=== PATIENT | female | born 1955 | race Two or more races ===

== ENCOUNTER 2021-04-23 07:13 | Emergency (ER) | payer MEDICARE, OTHER ==
[~2021-04-23] VITALS: Ht 157.5 cm; Wt 84.0 kg
[2021-04-23 07:46] VITALS: BP 149/94
== END 2021-04-23 09:12 | disposition home or self-care (01) ==
LOC: ER 07:23
DX: S90.31XA Contusion of right foot, initial encounter (principal); I10 Essential (primary) hypertension; Z98.890 Other specified postprocedural states; W18.09XA Striking against other object with subsequent fall, initial encounter; Y93.89 Activity, other specified; Y92.89 Other specified places as the place of occurrence of the external cause; Y99.8 Other external cause status
CPT/HCPCS: 73630-TC

== ENCOUNTER 2021-08-28 07:03 | Inpatient (IN) | payer MEDICARE, OTHER ==
[~2021-08-28] VITALS: Ht 157.5 cm; Wt 90.7 kg
--- NOTE | 2021-08-28 07:03 | NUR ---
PT BIB SELF C/O SHARP R SIDED BREAST PAIN AND ON AND OFF DIZZINESS X 2 WEEKS. PT IS AAOX4, NOT IN RESPIRATORY DISTRESS, HOOKED TO SOFTWARE SALES EXECUTIVE, KEPT RESTED AND COMFORTABLE. WILL CONTINUE TO MONITOR.
--- NOTE | 2021-08-28 07:42 | NUR ---
AT BEDSIDE FOR EVAL.
[2021-08-28] MEDS ORDERED: ASPIRIN 325 MG TABLET ONE (07:57)
[2021-08-28] MEDS ORDERED: ASPIRIN 325 MG TABLET PO ONE (08:00)
--- NOTE | 2021-08-28 08:00 | NUR ---
ER PHLEB AT BEDSIDE FOR BLOOD DRAW.
--- NOTE | 2021-08-28 08:07 | NUR ---
SENIOR SAS PROGRAMMER AT BEDSIDE FOR XRAY.
[2021-08-28 08:15] LABS: BASOPHILS # (AUTO) 0.1 K/uL (0.0-0.2); BASOPHILS % (AUTO) 1.1 % (0.0-2.0); EOSINOPHILS % (AUTO) 3.5 % (0.0-6.0); HEMATOCRIT 36 % (33-45); HEMOGLOBIN 11.8 g/dL (11.5-14.8); LYMPHOCYTES # (AUTO) 1.8 K/uL (0.8-4.8); LYMPHOCYTES % (AUTO) 37.9 % (20.0-44.0); MEAN CORPUSCULAR HGB CONC 33 g/dl (31.0-36.0); MEAN CORPUSCULAR VOLUME 100 fL (82-100); MONOCYTES # (AUTO) 0.7 K/uL (0.1-1.30); MONOCYTES % (AUTO) 14.2 % (2.0-12.0); NEUTROPHILS % (AUTO) 43.3 % (43.0-81.0); PLATELET COUNT (AUTO) 359 K/uL (150-450); RED BLOOD CELL COUNT(AUTO) 3.62 MIL/uL (4.0-5.2); WHITE BLOOD COUNT (AUTO) 4.6 K/uL (4.3-11.0)
[2021-08-28 08:32] LABS: CALCIUM, SERUM 8.5 mg/dL (8.5-10.1); CARBON DIOXIDE 29 mmol/L (21-32); CHLORIDE 104 mmol/L (98-107); CREATININE 0.7 mg/dL (0.6-1.3); GLUCOSE 102 mg/dL (74-106); POTASSIUM 4.2 mmol/L (3.5-5.1); SODIUM SERUM 138 mmol/L (136-145); UREA NITROGEN, BLOOD 20 mg/dL (7-18)
[2021-08-28] MEDS ORDERED: HYDROCODONE/APAP 5/325MG TABLET ONE (08:34)
[2021-08-28] MEDS ORDERED: HYDROCODONE/APAP 5/325MG TABLET PO ONE (09:00)
--- NOTE | 2021-08-28 09:30 | NUR ---
MOVE SHEET SUBMITTED AND CALLED FOR TELE BED.
--- NOTE | 2021-08-28 09:55 | NUR ---
IV LINE ESTABLISHED BLOOD DRAWN AND SENT TO LAB.
--- NOTE | 2021-08-28 11:44 | NUR ---
[facility] CALLED SPOOLING OPERATOR PAGED.
[2021-08-28] MEDS ORDERED: TRAM50TA2 PO (11:48)
[2021-08-28] MEDS ORDERED: CYCL10TA9 PO (11:48)
[2021-08-28] MEDS ORDERED: OLME1TAB92 PO (11:48)
[2021-08-28] MEDS ORDERED: CALC-1180 PO (11:48)
[2021-08-28] MEDS ORDERED: FERR325T23 PO (11:48)
--- NOTE | 2021-08-28 12:09 | NUR ---
GOT BED 309-1
--- NOTE | 2021-08-28 12:40 | NUR ---
REPORT GIVEN TO RADHA ENCINAS FOR DELMI.
[2021-08-28 13:05] VITALS: BP 143/79
--- NOTE | 2021-08-28 14:21 | NUR ---
BENZENE WORKER ADMITTING NOTES ADMITTED PATIENT TO UNIT AT 1305 VIA GURNEY, ACCOMPANIED BY NURSE SOLANGE MARTE. PATIENT FULLY A/O X 4, ABLE TO MAKE NEEDS KNOWN. NO COMPLAINTS OF PAIN OR DISTRESS AT THIS TIME. PATIENT ORIENTED TO STAFF AND UNIT. PATIENT ON ROOM AIR TOLERATING WELL. VITAL SIGNS RECORDED AND STABLE. PATIENT WITH 20 G SALINE LOCK ON R HAND PATENT AND FLUSHING WELL. SKIN INTACT. PATIENT PLACED ON EXTERNAL TEXTILE PIN WORKER WITH READING NSR 77 AT THIS TIME. NO COMPLAINTS OF CARDIAC DISTRESS VOICED. SAFETY MEASURES IN PLACE: BED IN LOWEST LOCKED POSITION, SIDE RAILS UP X 2, CALL LIGHT AND TRAY TABLE PLACED WITHIN EASY REACH OF PATIENT. MD VÁZQUEZ MADE AWARE OF PATIENT ADMISSION TO UNIT. AWAITING ADMITTING ORDERS. WILL CONTINUE TO MONITOR.
[2021-08-28] MEDS ORDERED: Z GUARD REMEDY 4 OZ OINT TP PRN (15:00)
[2021-08-28] MEDS ORDERED: MAG HYDROX/AL HYDROX/SIMETH 30 ML UDC PO PRN (15:00)
[2021-08-28] MEDS ORDERED: ONDANSETRON HCL/PF 4 MG/2 ML VIAL IVP PRN (15:00)
[2021-08-28] MEDS ORDERED: MAGNESIUM HYDROXIDE 30 ML UDC PO PRN (15:00)
[2021-08-28] MEDS: TRAMADOL HCL 50 MG TABLET PO PRN (15:49)
--- NOTE | 2021-08-28 15:49 | NUR ---
BRIDGE SAW OPERATOR NOTES PATIENT COMPLAINT OF 3/10 RIGHT CHEST PAIN AND REQUESTING PAIN MEDICATION. PRN TRAMADOL 50 MG ORAL TAB ADMINISTERED ORDERED. WILL CONTINUE TO MONITOR FOR S/S OF PAIN.
[2021-08-28 16:00] VITALS: BP 151/77
--- NOTE | 2021-08-28 18:58 | NUR ---
AUTOMOBILE INSURANCE CLAIM EXAMINER CLOSING NOTES PATIENT IN BED A/O X 4, ABLE TO MAKE NEEDS KNOWN. PATIENT ON ROOM AIR TOLERATING WELL. PATIENT WITH 20 G SALINE LOCK ON R HAND PATENT AND FLUSHING WELL. EXTERNAL PROVIDER NETWORK MANAGER WITH SINUS TACH 102 AT THIS TIME. NO COMPLAINTS OF CARDIAC DISTRESS VOICED. SAFETY MEASURES IN PLACE: BED IN LOWEST LOCKED POSITION, SIDE RAILS UP X 2, CALL LIGHT AND TRAY TABLE PLACED WITHIN EASY REACH OF PATIENT. ALL CARE MET. WILL ENDORSE TO COLD ROLL INSPECTOR FOR DELMI.
--- NOTE | 2021-08-28 19:15 | NUR ---
SUBGRADE ROLLER OPERATOR OPENING NOTES: RECEIVED PATIENT IN BED, AWAKE, A/O X4. NO S/S OF DISTRESS NOTED. NO COMPLAIN OF PAIN. CALL LIGHT WITHIN REACH. BED IN LOWEST AND LOCKED POSITION. ON TELE MONITOR WITH SR 80.
[2021-08-28 19:59] VITALS: BP 136/73
[2021-08-29] MEDS: ACETAMINOPHEN 325 MG TABLET PO PRN (06:02)
[2021-08-29 06:51] LABS: BASOPHILS % (AUTO) 0.6 % (0.0-2.0); EOSINOPHILS % (AUTO) 1.8 % (0.0-6.0); HEMATOCRIT 36 % (33-45); HEMOGLOBIN 11.8 g/dL (11.5-14.8); LYMPHOCYTES % (AUTO) 23.1 % (20.0-44.0); MEAN CORPUSCULAR HGB CONC 33 g/dl (31.0-36.0); MEAN CORPUSCULAR VOLUME 99 fL (82-100); MONOCYTES # (AUTO) 0.5 K/uL (0.1-1.30); MONOCYTES % (AUTO) 10.5 % (2.0-12.0); NEUTROPHILS # (AUTO) 2.8 K/uL (1.8-8.9); PLATELET COUNT (AUTO) 352 K/uL (150-450); RED BLOOD CELL COUNT(AUTO) 3.63 MIL/uL (4.0-5.2); WHITE BLOOD COUNT (AUTO) 4.3 K/uL (4.3-11.0)
[2021-08-29 07:08] LABS: CREATININE 0.4 mg/dL (0.6-1.3); MAGNESIUM 1.8 mg/dL (1.8-2.4); PHOSPHORUS 3.6 mg/dL (2.5-4.9); POTASSIUM 3.9 mmol/L (3.5-5.1)
--- NOTE | 2021-08-29 07:40 | NUR ---
TELE/RN OPENING NOTE RECEIVED PATIENT IN BED, A/O X4, RESPONDS TO ALL STIMULI. IN NO ACUTE DISTRESS OBSERVED. RESPIRATORY EVEN AND UNLABORED ON ROOM AIR, NO SOB. PATIENT IS AMBULATORY. PATIENT IS COMPLAINING OF HEADACHE, WILL CHECK PRN MEDS. SKIN IS WARM TO TOUCH, CLEAN/DRY, IV SITE ON RIGHT HAND #20G IS INTACT AND PATENT ON SALINE LOCK. ELEVATED HOB TO ENSURE AIRWAY AND ASPIRATION PRECAUTION, ALSO LOWER POSITION OF THE BED FOR SAFETY. CALL LIGHT WITHIN REACH, WILL CONTINUE TO MONITOR.
[2021-08-29 08:28] VITALS: BP 137/78
[2021-08-29] MEDS: CALCIUM CARB 600MG /VIT D 1 EACH TABLET PO SCH (08:52)
[2021-08-29] MEDS: FERROUS SULFATE (325 MG) 325 MG/TAB TABLET PO SCH (08:52)
[2021-08-29] MEDS: HYDROCHLOROTHIAZIDE PO SCH (09:25)
[2021-08-29] MEDS: OLMESARTAN PO SCH (09:25)
[2021-08-29] MEDS: TRAMADOL HCL 50 MG TABLET PO PRN ×2 (10:38→16:44)
[2021-08-29] MEDS: METOPROLOL TARTRATE 25 MG TABLET PO SCH ×2 (11:47→20:57)
[2021-08-29 16:18] VITALS: BP 124/72
--- NOTE | 2021-08-29 18:30 | NUR ---
PATIENT WAS PICKED UP FOR THE CT CHEST WITH CONTRAST PROCEDURE.
[2021-08-29] MEDS ORDERED: IV NS 0.9% 250 ML IV ONE (18:36)
[2021-08-29] MEDS ORDERED: IOHEXOL-300 100 ML VIAL IV ONE (18:36)
[2021-08-29] MEDS ORDERED: CT SWABBABLE VALVE TRANS SET 1 EA INFUS.SET MC ONE (18:36)
--- NOTE | 2021-08-29 18:54 | NUR ---
PATIENT JUST CAME BACK FROM CT CHEST WITH CONTRAST.
--- NOTE | 2021-08-29 18:59 | NUR ---
TELE/RN CLOSING NOTE PATIENT IN BED, A/O X4, RESPONDS TO ALL STIMULI. IN NO ACUTE DISTRESS OBSERVED. RESPIRATORY EVEN AND UNLABORED ON ROOM AIR, NO SOB. PATIENT IS AMBULATORY. ON TELEMONITOR WITH SINUS RHYTHM AT 81 READING. SKIN IS WARM TO TOUCH, CLEAN/DRY, IV SITE ON RIGHT HAND #20G IS INTACT AND PATENT ON SALINE LOCK. ELEVATED HOB TO ENSURE AIRWAY AND ASPIRATION PRECAUTION, ALSO LOWER POSITION OF THE BED FOR SAFETY. ALL NEEDS MET. KEPT PATIENT COMFORTABLE. CALL LIGHT WITHIN REACH, WILL ENDORSE TO THE NEXT SHIFT FOR DELMI.
--- NOTE | 2021-08-29 19:15 | NUR ---
ELECTRICAL ENGINEERING INTERN OPENING NOTES: RECEIVED PATIENT RESTING IN BED, AWAKE, A/O X4. NO S/S OF DISTRESS NOTED. NO COMPLAIN OF PAIN. CALL LIGHT WITHIN REACH. BED IN LOWEST AND LOCKED POSITION. ON TELE MONITOR WITH SINUS 79.
[2021-08-29 20:00] VITALS: BP 113/62
[2021-08-29] MEDS: CYCLOBENZAPRINE 10 MG TABLET PO PRN (21:05)
[2021-08-30] VITALS: BP 92/60
[2021-08-30 04:00] VITALS: BP 96/59
--- NOTE | 2021-08-30 06:02 | NUR ---
CHA MOTA INFORMED BP 96/59 HR 61.
--- NOTE | 2021-08-30 07:30 | NUR ---
MS RN OPENING NOTES RECEIVED PATIENT IN BED; ALERT, ORIENTED AND RESPONSIVE X 4; NOT IN ANY FORM OF DISTRESS; ON ROOM AIR, TOLERATING WELL. BREATHING IS EVEN AND UNLABORED. NO SHORTNESS OF BREATH NOTED. PATIENT COMPLAINED OF HEADACHE, WILL CHECK PRN MED. IV ACCESS ON RIGHT HAND WITH G20, PATENT AND INTACT ON SALINE LOCKED. SAFETY MEASURES IN PLACED. CALL LIGHT WITHIN REACH. SIDE RAILS UP X 2. BED IN LOWEST LOCKED POSITION
[2021-08-30 08:00] VITALS: BP 109/59
[2021-08-30] MEDS: FERROUS SULFATE (325 MG) 325 MG/TAB TABLET PO SCH (08:21)
[2021-08-30] MEDS: CALCIUM CARB 600MG /VIT D 1 EACH TABLET PO SCH (08:22)
[2021-08-30] MEDS: ACETAMINOPHEN 325 MG TABLET PO PRN (08:50)
[2021-08-30] MEDS: OLMESARTAN PO SCH (09:00)
[2021-08-30] MEDS: METOPROLOL TARTRATE 25 MG TABLET PO SCH ×2 (09:00→21:05)
[2021-08-30] MEDS: HYDROCHLOROTHIAZIDE PO SCH (09:00)
--- NOTE | 2021-08-30 09:30 | NUR ---
DOG WALKER NOTES DUE MEDS GIVEN ORALLY ORDERED, TOLERATED WELL
[2021-08-30 16:04] VITALS: BP 90/66
[2021-08-30] MEDS: TRAMADOL HCL 50 MG TABLET PO PRN ×2 (16:35→19:32)
--- NOTE | 2021-08-30 19:01 | NUR ---
CLEAN RICE BROKER CLOSING NOTE PATIENT IS RESTING IN BED. NEEDS ATTENDED TO. ENDORSED TO NURSE VILMA
--- NOTE | 2021-08-30 19:42 | NUR ---
GLASS HANDLER OPENING NOTES RECEIVED PATIENT IN BED. A/OX4. NO S/S OF APPARENT DISTRESS. C/O 01/04 HEADACHE-- GIVEN PAIN MEDICATION. TELE MONITOR READING SR 75. NO FLUIDS RUNNING AT THIIS TIME. SAFETY IN PLACE. WILL CONTINUE WITH PATIENT CARE PLAN.
[2021-08-30 20:00] VITALS: BP 111/63
[2021-08-30] MEDS: CYCLOBENZAPRINE 10 MG TABLET PO PRN (20:35)
[2021-08-30 23:53] VITALS: BP 106/67
[2021-08-31] VITALS (8 sets, daily range): BP systolic 96–134; BP diastolic 43–69
--- NOTE | 2021-08-31 06:45 | NUR ---
ASSEMBLER RUBBER FOOTWEAR CLOSING NOTE PATIENT IN BED WITH EYES CLOSE, A/OX4. NO S/S OF APPARENT DISTRESS ON ROOM AIR. PAIN MANAGED WITH MEDICATIONS. TELE MONITOR READING NSR 83 BPM THROUGHOUT SHIFT. NO FLUIDS RUNNING AT THIS TIME. ALL NEEDS ATTENDED. ALL SCHEDULED MEDICATION ADMINISTERED. NO SIGNIFICANT CHANGE SINCE LAST ENDORSEMENT. SAFETY KEPT IN PLACE THE WHOLE SHIFT. WILL ENDORSE TO MORNING SHIFT RN FOR CONTINUITY OF CARE.
--- NOTE | 2021-08-31 07:34 | NUR ---
APPLICATION ADMINISTRATOR OPENING NOTES RECEIVED PATIENT IN BED, AWAKE. A/OX4. NO S/S OF APPARENT DISTRESS, NO COMPLAINTS OF PAIN TA THIS TIME. TELE MONITOR READING SR 77. IV ACCESS ON RIGHT HAND SALINE LOCKED, PATENT AND FLUSHES WELL. SAFETY PRECAUTIONS IN PLACE: BED ON LOWEST LOCKED POSITION, SIDE RIALS UP X 2, CALL LIGHT WITHIN EASY REACH. SAFETY IN PLACE. WILL CONTINUE TO MONITOR ACCORDINGLY.
[2021-08-31] MEDS: FERROUS SULFATE (325 MG) 325 MG/TAB TABLET PO SCH (08:21)
[2021-08-31] MEDS: CALCIUM CARB 600MG /VIT D 1 EACH TABLET PO SCH (08:21)
[2021-08-31] MEDS: OLMESARTAN PO SCH (08:28)
[2021-08-31] MEDS: HYDROCHLOROTHIAZIDE PO SCH (08:28)
[2021-08-31] MEDS: METOPROLOL TARTRATE 25 MG TABLET PO SCH ×2 (08:28→21:00)
--- NOTE | 2021-08-31 09:48 | NUR ---
RN NOTES AWAITING SCHEDULE/INSTRUCTIONS FOR STA TODAY. FOLLOWED UP WITH AUTOMOTIVE TIRE TECHNICIAN DEPARTMENT AND NURSING FORENSIC DNA ANALYST.
--- NOTE | 2021-08-31 11:24 | NUR ---
RN NOTES RECEIVED A PHONE CALL FROM [facility] [facility]. PER [facility] NO AVAILABLE TECH TO DO CTA TODAY. PATIENT NAD DR. VÁZQUEZ MADE AWARE.
[2021-08-31] MEDS: TRAMADOL HCL 50 MG TABLET PO PRN (17:29)
--- NOTE | 2021-08-31 18:52 | NUR ---
RECREATION TECHNICIAN CLOSING NOTES PATIENT IN BED, AWAKE. A/OX4. NO S/S OF APPARENT DISTRESS, NO COMPLAINTS OF PAIN TA THIS TIME. TELE MONITOR READING SR 77. IV ACCESS ON RIGHT HAND SALINE LOCKED, PATENT AND FLUSHES WELL. SAFETY PRECAUTIONS IN PLACE: BED ON LOWEST LOCKED POSITION, SIDE RIALS UP X 2, CALL LIGHT WITHIN EASY REACH. SAFETY IN PLACE. PAIN MANAGED BY PAIN MEDICATION ORDERED. ALL NEEDS ATTENDED AND MET. DUE MEDS GIVEN ORDERED. WILL ENDORSE TO ONCOMING SHIFT FOR DELMI.
--- NOTE | 2021-08-31 19:34 | NUR ---
SUPPLY CHAIN DIRECTOR OPENING NOTES RECEIVED PATIENT IN BED WATCHING TV. A/OX4. NO S/S OF APPARENT DISTRESS. DENIES PAIN AT THIS TIME. PATIENT MADE KNOWN ABOUT PROCEDURE FOR TOMORROW AND NPO POST MIDNIGHT, PATIENT ACKNOWLEDGED. TELE MONITOR READING SR 85. NO FLUIDS RUNNING AT THIS TIME. SAFETY IN PLACE. WILL CONTINUE WITH PATIENT CARE PLAN.
[2021-08-31] MEDS: CYCLOBENZAPRINE 10 MG TABLET PO PRN (20:27)
[2021-09-01] VITALS: BP 109/62
[2021-09-01 05:00] VITALS: BP 92/46
--- NOTE | 2021-09-01 06:48 | NUR ---
CRAB BUTCHER CLOSING NOTE PATIENT IN BED WITH EYES CLOSE, A/OX4. NO S/S OF APPARENT DISTRESS ON ROOM AIR. DENIES PAIN. TELE MONITOR READING NSR 70 BPM. NO FLUIDS RUNNING AT THIS TIME. ALL NEEDS ATTENDED. BP MEDS HELD DUE TO LOW BP. NO SIGNIFICANT CHANGE SINCE LAST ENDORSEMENT. SAFETY KEPT IN PLACE THE WHOLE SHIFT. PATIENT KEPT NPO SINCE MIDNIGHT. CONSENT IN CHART FOR CTA. WILL ENDORSE TO MORNING SHIFT RN FOR CONTINUITY OF CARE.
--- NOTE | 2021-09-01 07:05 | NUR ---
BROKE MAN OPENING NOTES RECEIVED PATIENT IN BED, PATIENT IS AWAKE. A/OX4. NO S/S OF APPARENT DISTRESS, NO COMPLAINTS OF PAIN AT THIS TIME. TELE MONITOR READING SR 77. IV ACCESS ON RIGHT HAND #20 SALINE LOCKED, PATENT AND FLUSHES WELL. SAFETY PRECAUTIONS IN PLACE: BED ON LOWEST LOCKED POSITION, SIDE RIALS UP X 2, CALL LIGHT WITHIN EASY REACH. SAFETY IN PLACE. WILL CONTINUE TO MONITOR
[2021-09-01] MEDS: CALCIUM CARB 600MG /VIT D 1 EACH TABLET PO SCH (08:04)
[2021-09-01] MEDS: FERROUS SULFATE (325 MG) 325 MG/TAB TABLET PO SCH (08:04)
[2021-09-01] MEDS: METOPROLOL TARTRATE 25 MG TABLET PO SCH (08:05)
[2021-09-01] MEDS: OLMESARTAN PO SCH (08:06)
[2021-09-01] MEDS: HYDROCHLOROTHIAZIDE PO SCH (08:06)
[2021-09-01 08:20] VITALS: BP 98/58
[2021-09-01] MEDS ORDERED: NITROGLYCERIN 0.4 MG/TAB BOTTLE SL ONE (09:00)
[2021-09-01] MEDS ORDERED: METOPROLOL TARTRATE INJ 5 MG/5 ML AMPUL IVP PRN (09:00)
[2021-09-01] MEDS ORDERED: IV NS 0.9% 250 ML IV ONE (09:03)
[2021-09-01] MEDS ORDERED: IOHEXOL-350 100 ML VIAL IV ONE (09:03)
[2021-09-01] MEDS ORDERED: METOPROLOL TARTRATE INJ 5 MG/5 ML AMPUL ONE (09:09)
[2021-09-01] MEDS ORDERED: NITROGLYCERIN 0.4 MG/TAB BOTTLE ONE (09:19)
[2021-09-01] MEDS: ACETAMINOPHEN 325 MG TABLET PO PRN (09:44)
--- NOTE | 2021-09-01 13:00 | NUR ---
PSYCHIATRIC CLINICIAN NOTE RECEIVED ORDER FOR DISCHARGE. PATIENT IS AO X4. PATIENT IS BREATHING EVENLY AND NONLABORED ON ROOM AIR. NO SIGNS OF PAIN OR DISTRESS. PATIENT WAS GIVEN DISCHARGE INSTRUCTIONS BOTH VERBALLY AND IN WRITTEN FORM. PATIENT VERBALIZED UNDERSTANDING. PATIENTS BELONGINGS AND MEDICATIONS ACCOUNTED FOR AND BELONGINGS FORM SIGNED. PATIENTS IV ACCESS WAS REMOVED PRESSURE DRESSING APPLIED NO BLEEDING NOTED. ID BAND REMOVED. PATIENT LEFT THE HOSPITAL IN STABLE CONDITION VIA PRIVATE CAR.
[2021-09-01 13:02] VITALS: BP 99/60
== END 2021-09-01 12:30 | disposition home or self-care (01) | DRG 206 ==
LOC: ER 07:06 → TELE 12:23
PROVIDERS: ADMIT Internal Medicine; ATTEND Internal Medicine
DX: M94.0 Chondrocostal junction syndrome [Tietze] (principal); I10 Essential (primary) hypertension; Z82.49 Family history of ischemic heart disease and other diseases of the circulatory system; G89.29 Other chronic pain; E66.01 Morbid (severe) obesity due to excess calories; R91.1 Solitary pulmonary nodule; I70.0 Atherosclerosis of aorta; I27.20 Pulmonary hypertension, unspecified; Z87.01 Personal history of pneumonia (recurrent); G47.33 Obstructive sleep apnea (adult) (pediatric); Z87.891 Personal history of nicotine dependence; M54.2 Cervicalgia; M54.9 Dorsalgia, unspecified; Z20.822 Contact with and (suspected) exposure to COVID-19; R92.8 Other abnormal and inconclusive findings on diagnostic imaging of breast; Z88.6 Allergy status to analgesic agent
CPT/HCPCS: 36415; 71046; 71260-TC; 75574; 80048-TC; 83735-TC; 84100-TC; 84484-TC; 85025-TC; 85378-TC; 86480; 87081-TC; 93307-TC; C9803; G0378; J3490; J7050; Q9967

== ENCOUNTER 2022-08-10 13:17 | Emergency (ER) | payer MEDICARE, OTHER ==
[~2022-08-10] VITALS: Ht 157.5 cm; Wt 84.4 kg
[~2022-08-10 13:17] MED LIST: CALC-1180 PO; CYCL10TA9 PO; FERR325T23 PO; OLME1TAB92 PO; TRAM50TA2 PO
--- NOTE | 2022-08-10 13:36 | NUR ---
C/O LEFT ARM PAIN X 2 WEEKS S/P "LIFTING SOMETHING HEAVY"
--- NOTE | 2022-08-10 13:42 | NUR ---
technical service specialist at bedside.
[2022-08-10 14:41] VITALS: BP 156/72
== END 2022-08-10 14:42 | disposition home or self-care (01) ==
LOC: ER 13:22
DX: S49.92XA Unspecified injury of left shoulder and upper arm, initial encounter (principal); I10 Essential (primary) hypertension; Z88.8 Allergy status to other drugs, medicaments and biological substances; X50.0XXA Overexertion from strenuous movement or load, initial encounter; Y93.89 Activity, other specified; Y92.89 Other specified places as the place of occurrence of the external cause; Y99.8 Other external cause status
CPT/HCPCS: 73030-TC